=== PATIENT | female | born 1955 | race African-American/Black ===

== ENCOUNTER 2019-11-01 21:57 | Emergency (ER) | payer MEDICARE, MEDICAID ==
[~2019-11-01] VITALS: Ht 154.9 cm; Wt 56.0 kg
[~2019-11-01 21:57] MED LIST: ALPR2TAB5 PO; BENZ100C PO; DICY10CA3 PO; LOSA-73 PO; OXYC1TAB19 PO; SIMV10TA15 PO
[2019-11-01 22:05] VITALS: BP 136/60
[2019-11-01] MEDS ORDERED: LIDOCAINE (700MG/PATCH) PATCH. TD ONE (23:30)
[2019-11-01] MEDS ORDERED: HYDROcodone/APAP 5/325MG 1 TAB TABLET PO ONE (23:30)
[2019-11-01] MEDS ORDERED: CYCLOBENZAPRINE 10 MG TABLET. PO ONE (23:30)
--- NOTE | 2019-11-01 23:58 | RAD ---
INDICATION: Reason: RLE pain / Spl. Instructions: / History: COMPARISON: None. TECHNIQUE: Grayscale, color and doppler ultrasound images were obtained of the right lower extremity venous vasculature. RIGHT: No thrombus identified in the common femoral vein, femoral vein, popliteal vein or visualized calf veins. IMPRESSION: * No thrombus identified in deep venous system of right lower extremity. Electronically signed by: Jonathan Arnold MD (11/01/2019 11:55 PM) [id number]
[2019-11-02] MEDS ORDERED: LIDO1ADH63 TP (00:23)
--- NOTE | 2019-11-02 00:24 | PHYS DOC ---
Past Medical History Past Medical History: GERD, Hypertension, Other Additional Past Medical Histor: high cholesterol Past Surgical History: Appendectomy, Hysterectomy, Knee Replacement Additional Past Surgical Histo: foot sx, Smoking Status: Never Smoker Alcohol Use: None Drug Use: None General Adult EDM: Chief Complaint: LOWER EXT PAIN HPI: HPI: The history was obtained from the patient. Patient is a 63-year-old female with PMH chronic back pain, hypertension, GERD who presents with a chief complaint of right thigh pain. Patient states she has had intermittent right thigh pain over the past month. States the pain starts in her right lower back and radiates down the lateral aspect of her thigh. Denies trauma or injury. Denies any recent travel. Denies any asymmetric swelling. Denies skin changes. Has tried home hydrocodone with minimal relief. Denies urinary symptoms. Denies syncope. Denies chest pain. States the pain seems to be slightly worse than normal tonight. States the pain is aching in nature. Denies alleviating or exacerbating factors. Patient denies any urinary retention, stool incontinence, saddle anesthesia, history of IV drug use, or history of cancer. Patient denies any history of immobilization greater than 48 hours, recent hospitalizations, recent surgery, recent trauma, , oral contraceptive usage, hormone replacement therapy, air travel greater than 8 hours, recent infectious disease, or general deterioration of their overall condition. Review of Systems: Review of Systems: Constitutional: Denies fever or chills. [] Eyes: Denies change in visual acuity. [] HENT: Denies nasal congestion or sore throat. [] Respiratory: Denies cough or shortness of breath. [] Cardiovascular: Denies chest pain or edema. [] GI: Denies abdominal pain, nausea, vomiting, bloody stools or diarrhea. [] : Denies dysuria. [] Musculoskeletal: Positive for back pain and right lower extremity pain Integument: Denies rash. [] Neurologic: Denies headache, focal weakness or sensory changes. [] Endocrine: Denies polyuria or polydipsia. [] Lymphatic: Denies swollen glands. [] Psychiatric: Denies depression or anxiety. [] Heart Score: Risk Factors: Risk Factors: DM, Current or recent (<one month) smoker, HTN, HLP, family history of CAD, obesity. Risk Scores: Score 0 - 3: 2.5% MACE over next 6 weeks - Discharge Home Score 4 - 6: 20.3% MACE over next 6 weeks - Admit for Clinical Observation Score 7 - 10: 72.7% MACE over next 6 weeks - Early Invasive Strategies Current Medications: Current Medications Medications (Trade) Dose Ordered Sig/[facility] Start Time Stop Time Status Last Admin Dose Admin Acetaminophen/ Hydrocodone Bitart (Lortab 5/325) 1 tab 1X ONCE 11/01/19 23:30 11/01/19 23:31 DC Cyclobenzaprine HCl (Flexeril) 10 mg 1X ONCE 11/01/19 23:30 11/01/19 23:31 DC Lidocaine (Lidoderm) 1 patch 1X ONCE 11/01/19 23:30 11/01/19 23:31 DC Allergies: Allergies: Allergies Coded Allergies Type Severity Reaction Last Updated Verified Penicillins Allergy Intermediate hives, itching 02/10/16 Yes Physical Exam: PE: Constitutional: Well developed, well nourished, no acute distress, non-toxic appearance. [] HENT: Normocephalic, atraumatic, bilateral external ears normal, oropharynx mo ist, no oral exudates, nose normal. [] Eyes: PERRLA, EOMI, conjunctiva normal, no discharge. [] Neck: Normal range of motion, no tenderness, supple, no stridor. [] Cardiovascular:Heart rate regular rhythm, no murmur [] Lungs & Thorax: Bilateral breath sounds clear to auscultation [] Abdomen: Soft, nontender, nonacute abdomen. No involuntary guarding or rigidity noted. No acute peritonitis. Skin: Warm, dry, no erythema, no rash. [] Back: + 5/5 motor strength in dorsiflexion and plantarflexion of the great toes bilaterally. Sensation intact between the webbing of the first and second toes bilaterally. Extremities: R Knee Erythema not present. Warmth not present. Effusion not present. Anterior drawer is intact. Posterior drawer is intact. Varus testing is intact. Valgus testing is intact. Knee extension is intact. DNVI (DP pulse 2+, plantar and dorsiflexion intact, light touch intact). Hip with no reproducible tenderness palpation. Full active and passive range of motion without difficulty. 2-4 DP pulse on the right. No crepitus palpated. No asymmetrical swelling appreciated. Neurologic: Alert and oriented X 3, normal motor function, normal sensory function, no focal deficits noted. [] Psychologic: Affect normal, judgement normal, mood normal. [] Current Patient Data: Vital Signs: Vital Signs Date Time Temp Pulse Resp B/P (MAP) Pulse Ox O2 Delivery O2 Flow Rate FiO2 11/01/19 22:05 98.4 68 18 136/60 (85) 100 Room Air 98.4 EKG: EKG: [] Radiology/Procedures: Radiology/Procedures: [][facility] [address] [place] [address] IMAGING REPORT Signed PATIENT: SANDY VALDEZ DACCOUNT: [id number] : 1955 LOCATION: ER AGE: 63 SEX: F EXAM STATUS: REG ER ORD. PHYSICIAN: ROSARIO ANDRES DO REASON: RLE pain PROCEDURE: VENOUS LOWER EXTREMITY RIGHT INDICATION: Reason: RLE pain / Spl. Instructions: / History: COMPARISON: None. TECHNIQUE: Grayscale, color and doppler ultrasound images were obtained of the right lower extremity venous vasculature. RIGHT: No thrombus identified in the common femoral vein, femoral vein, popliteal vein or visualized calf veins. IMPRESSION: * No thrombus identified in deep venous system of right lower extremity. Electronically signed by: Judd Land MD (11/01/2019 11:55 PM) [id number] DICTATED and SIGNED BY: JUDD LAND MD DATE: 11/01/19 0589 Course & Med Decision Making: Course & Med Decision Making Pertinent Labs and Imaging studies reviewed. (See chart for details) [Patient is a well-appearing 63-year-old female who presents with chief complaint of atraumatic right thigh pain. DVT study negative. Given the patient denies any trauma or injury extremity will be deferred. I do suspect this could be referred pain from her chronic back pain. She may be experiencing sciatica or iliotibial band inflammation. She does have hydrocodone at home. I encouraged her to continue to use anti-inflammatories. Flexeril Lidoderm patch was administered in the ER and she did get some relief. She has been ambulatory in the emergency department. Return precautions discussed and understood. Stable for discharge home. Laura Disclaimer: Laura Disclaimer: This electronic medical record was generated, in whole or in part, using a voice recognition dictation system. Departure Departure Impression: Primary Impression: Right thigh pain Disposition: HOME, SELF-CARE Condition: GOOD Referrals: VASQUEZ BECKER MD (PCP) Patient Instructions: Back Pain, Adult Scripts Lidocaine (Lidocaine) 1 Each Adh..patch 1 EACH TP PRN BID PRN for PAIN, #6 PATCH Prov: ROSARIO ANDRES DO 11/02/19 Justicifation of Admission Dx: Justifications for Admission: Justification of Admission Dx: N/A ROSARIO ANDRES DO Nov 02, 2019 00:24
== END 2019-11-02 00:33 | disposition home or self-care (01) ==
LOC: ER 21:57
DX: M79.651 Pain in right thigh (principal); M25.531 Pain in right wrist; M54.5 Low back pain; G89.29 Other chronic pain; I10 Essential (primary) hypertension; K21.9 Gastro-esophageal reflux disease without esophagitis; E78.00 Pure hypercholesterolemia, unspecified; Z90.89 Acquired absence of other organs; Z90.710 Acquired absence of both cervix and uterus; Z88.0 Allergy status to penicillin
CPT/HCPCS: 29125; 93971; 99284

== ENCOUNTER 2020-04-02 12:46 | Emergency (ER) | payer MEDICARE, MEDICAID ==
[~2020-04-02] VITALS: Ht 154.9 cm; Wt 56.8 kg
[~2020-04-02 12:46] MED LIST changes: +LIDO1ADH63 TP
[2020-04-02 13:12] LABS: BILIRUBIN,URINE NEGATIVE (NEG); CLARITY,URINE CLEAR; COLOR,URINE YELLOW; NITRITE,URINE NEGATIVE (NEG); PH,URINE 5.5 (<5.0-8.0); PROTEIN,URINE NEGATIVE (NEG-TRACE); UROBILINOGEN,URINE 0.2 mg/dL (0.2 mg/dL)
--- NOTE | 2020-04-02 13:20 | ED.ADGEN ---
Past Medical History Past Medical History: GERD, High Cholesterol, Hypertension, Other Additional Past Medical Histor: CHRONIC NECK/BACK PAIN Past Surgical History: Appendectomy, Hysterectomy, Knee Replacement Additional Past Surgical Histo: foot sx, Smoking Status: Former Smoker Alcohol Use: None Drug Use: None General Adult EDM: Chief Complaint: ABDOMINAL PAIN HPI: HPI: Patient is a 64 year old AA female who presents emergency department with comp laints of intermittent nonspecific abdominal pain for the last 6 to 8 weeks. Patient currently denies any pain. She reports that at times the pain feels sharp other times it feels like it is pressure. She denies any nausea, vomiting, diarrhea, body aches, or fatigue. Patient states that a home nurse came and saw her and prescribed antibiotics that was given for what they thought was a urinary tract infection. She denies any dysuria, hematuria, or increased urinary frequency at this time. The patient states that at times the pain occurs after she eats other times it just happens at random. She denies any pain today. Review of Systems: Review of Systems: Complete ROS is negative unless otherwise noted in HPI. Allergies: Allergies: Allergies Coded Allergies Type Severity Reaction Last Updated Verified Penicillins Allergy Intermediate hives, itching 02/10/16 Yes Physical Exam: PE: See Above Constitutional: Well developed, well nourished, no acute distress, non-toxic appearance. [] HENT: Normocephalic, atraumatic, bilateral external ears normal, nose normal. [] Eyes: PERRLA, EOMI, conjunctiva normal, no discharge. [] Neck: Normal range of motion, no stridor. [] Cardiovascular:Heart rate regular rhythm Lungs & Thorax: Respirations even and unlabored, no retractions, no respiratory distress Abdomen: soft, no tenderness, no rebound tenderness, no guarding, no palpable mass, no pulsatile mass Skin: Warm, dry, no erythema, no rash. [] Extremities: No cyanosis, ROM intact, no edema. [] Neurologic: Alert and oriented X 3, no focal deficits noted. [] Psychologic: Affect normal, judgement normal, mood normal. [] Current Patient Data: Labs: Laboratory Tests Test 04/02/20 13:00 04/02/20 13:52 Urine Collection Type Unknown Urine Color Yellow Urine Clarity Clear Urine pH 5.5 (<5.0-8.0) Urine Specific [place] 1.015 (1.000-1.030) Urine Protein Negative mg/dL (NEG-TRACE) Urine Glucose (UA) Negative mg/dL (NEG) Urine Ketones (Stick) Negative mg/dL (NEG) Urine Blood Negative (NEG) Urine Nitrite Negative (NEG) Urine Bilirubin Negative (NEG) Urine Urobilinogen Dipstick 0.2 mg/dL (0.2 mg/dL) Urine Leukocyte Esterase Negative (NEG) Urine RBC 0 /HPF (0-2) Urine WBC Occ /HPF (0-4) Urine Squamous Epithelial Cells Occ /LPF Urine Bacteria Few /HPF (0-FEW) White Blood Count 9.3 x10^3/uL (4.0-11.0) Red Blood Count 4.32 x10^6/uL (3.50-5.40) Hemoglobin 12.0 g/dL (12.0-15.5) Hematocrit 36.6 % (36.0-47.0) Mean Corpuscular Volume 85 fL (79-100) Mean Corpuscular Hemoglobin 28 pg (25-35) Mean Corpuscular Hemoglobin Concent 33 g/dL (31-37) Red Cell Distribution Width 14.7 % (11.5-14.5) H Platelet Count 201 x10^3/uL (140-400) Neutrophils (%) (Auto) 63 % (31-73) Lymphocytes (%) (Auto) 29 % (24-48) Monocytes (%) (Auto) 7 % (0-9) Eosinophils (%) (Auto) 1 % (0-3) Basophils (%) (Auto) 0 % (0-3) Neutrophils # (Auto) 5.9 x10^3/uL (1.8-7.7) Lymphocytes # (Auto) 2.7 x10^3/uL (1.0-4.8) Monocytes # (Auto) 0.6 x10^3/uL (0.0-1.1) Eosinophils # (Auto) 0.1 x10^3/uL (0.0-0.7) Basophils # (Auto) 0.0 x10^3/uL (0.0-0.2) Sodium Level 141 mmol/L (136-145) Potassium Level 3.7 mmol/L (3.5-5.1) Chloride Level 105 mmol/L (98-107) Carbon Dioxide Level 27 mmol/L (21-32) Anion Gap 9 (6-14) Blood Urea Nitrogen 16 mg/dL (7-20) Creatinine 0.9 mg/dL (0.6-1.0) Estimated GFR (Cockcroft-Gault) 76.3 BUN/Creatinine Ratio 18 (6-20) Glucose Level 91 mg/dL (70-99) Calcium Level 9.6 mg/dL (8.5-10.1) Magnesium Level 2.3 mg/dL (1.8-2.4) Total Bilirubin 0.3 mg/dL (0.2-1.0) Aspartate Amino Transferase (AST) 19 U/L (15-37) Alanine Aminotransferase (ALT) 33 U/L (14-59) Alkaline Phosphatase 77 U/L (46-116) Total Protein 7.3 g/dL (6.4-8.2) Albumin 3.9 g/dL (3.4-5.0) Albumin/Globulin Ratio 1.1 (1.0-1.7) Lipase 48 U/L (73-393) L Laboratory Tests 04/02/20 13:52 Laboratory Tests 04/02/20 13:52 Vital Signs: Vital Signs Date Time Temp Pulse Resp B/P (MAP) Pulse Ox O2 Delivery O2 Flow Rate FiO2 04/02/20 12:51 97.8 66 16 155/73 (100) 100 Room Air 97.8 EKG: EKG: [] Heart Score: Risk Factors: Risk Factors: DM, Current or recent (<one month) smoker, HTN, HLP, family history of CAD, obesity. Risk Scores: Score 0 - 3: 2.5% MACE over next 6 weeks - Discharge Home Score 4 - 6: 20.3% MACE over next 6 weeks - Admit for Clinical Observation Score 7 - 10: 72.7% MACE over next 6 weeks - Early Invasive Strategies Radiology/Procedures: Radiology/Procedures: [] Course & Med Decision Making: Course & Med Decision Making Pertinent Labs and Imaging studies reviewed. (See chart for details) Patient is a 64-year-old female who presents emergency department with complaints of intermittent abdominal pain that has been ongoing for the last 6 to 8 weeks. Work-up included a CBC, CMP, lipase, and UA. CBC is unremarkable, CMP is unremarkable, the patient's lipase is low; UA revealed no findings consistent with infection. I advised the patient that all of her labs were within normal limits today I encouraged her to follow-up with her primary care doctor or light bulb replacer for further evaluation and treatment of ongoing intermittent abdominal pain. I provided the patient with Dr. Brennna's information for gastroenterology referral. I encouraged the patient to return to the emergency room if her symptoms worsened or she developed a fever. Patient verbalized an understanding of home care, medications, follow-up, and return to ED instructions and was in agreement with the plan of care. [] Dragon Disclaimer: Dragon Disclaimer: This electronic medical record was generated, in whole or in part, using a voice recognition dictation system. Departure Departure Impression: Primary Impression: Nonspecific abdominal pain Disposition: 01 DC HOME SELF CARE/HOMELESS Condition: STABLE Referrals: VASQUEZ BECKER MD (PCP) BIRDIE BRENNAN MD Patient Instructions: Abdominal Pain (Nonspecific) Additional Instructions: Follow-up with your primary care doctor or light bulb replacer, Dr. Brennan's information has been provided, for further evaluation of ongoing abdominal pain. Return to the ER if your symptoms worsen or fever develops. CINDI CACERES APRN Apr 02, 2020 13:20
[2020-04-02 13:21] LABS: BACTERIA,URINE FEW /HPF (0-FEW); RBC,URINE 0 /HPF (0-2); WBC,URINE OCC /HPF (0-4)
[2020-04-02 14:01] LABS: BASO % 0 % (0-3); EOS # 0.1 x10^3/uL (0.0-0.7); EOS % 1 % (0-3); HEMATOCRIT 36.6 % (36.0-47.0); LYMPH # 2.7 x10^3/uL (1.0-4.8); LYMPH % 29 % (24-48); MEAN CORPUSCULAR HEMOGLOBIN 28 pg (25-35); MEAN CORPUSCULAR HGB CONC 33 g/dL (31-37); MEAN CORPUSCULAR VOLUME 85 fL (79-100); MONO # 0.6 x10^3/uL (0.0-1.1); MONO % 7 % (0-9); NEUT # 5.9 x10^3/uL (1.8-7.7); NEUT % 63 % (31-73); PLATELET COUNT 201 x10^3/uL (140-400); RED BLOOD COUNT 4.32 x10^6/uL (3.50-5.40); RED CELL DISTRIBUTION WIDTH 14.7 % (11.5-14.5); WHITE BLOOD COUNT 9.3 x10^3/uL (4.0-11.0)
[2020-04-02 14:25] LABS: CALCIUM 9.6 mg/dL (8.5-10.1); CREATININE 0.9 mg/dL (0.6-1.0); GFR 76.3; POTASSIUM 3.7 mmol/L (3.5-5.1)
[2020-04-02 14:30] LABS: ALBUMIN 3.9 g/dL (3.4-5.0); ALBUMIN/GLOBULIN RATIO 1.1 (1.0-1.7); MAGNESIUM 2.3 mg/dL (1.8-2.4); TOTAL BILIRUBIN 0.3 mg/dL (0.2-1.0); TOTAL PROTEIN 7.3 g/dL (6.4-8.2)
[2020-04-02 14:53] VITALS: BP 128/63
== END 2020-04-02 15:00 | disposition home or self-care (01) ==
LOC: ER 12:46
DX: R10.9 Unspecified abdominal pain (principal); I10 Essential (primary) hypertension; E78.00 Pure hypercholesterolemia, unspecified; K21.9 Gastro-esophageal reflux disease without esophagitis; G89.29 Other chronic pain; Z87.891 Personal history of nicotine dependence; Z90.89 Acquired absence of other organs; Z90.710 Acquired absence of both cervix and uterus; Z88.0 Allergy status to penicillin
CPT/HCPCS: 36415; 80053; 81001; 83690; 83735; 85025; 99284